=== PATIENT | male | born 1935 | race Hispanic/Latino ===

== ENCOUNTER 2018-03-15 10:11 | Observation (INO) | payer MEDICARE ==
[~2018-03-15] VITALS: Ht 167.6 cm; Wt 63.5 kg
--- OUTSIDE RECORDS SUMMARY | 2018-03-15 10:13 | XMS REPORT ---
Author Author [facility] Address Unknown Phone Unavailable Care Team Providers Care Laundry Presser Name Role Phone Unavailable Unavailable Payers Payer Name Policy Type Policy Number Effective Date Expiration Date Problems This patient has no known problems. Allergies, Adverse Reactions, Alerts Allergy Name Allergy Type Status Severity Reaction(s) Onset Date Inactive Date Treating Clinician Comments No Known Allergies DA Active U 2018-01-10 00:00:00 Medications This patient has no known medications.
[2018-03-15] MEDS ORDERED: ULTRAM 50MG50 MG PO (10:28)
[2018-03-15] MEDS ORDERED: METOPROLOL SUCC50 MG PO (10:28)
[2018-03-15] MEDS ORDERED: TAMSULOSIN HCL0.4 MG PO (10:28)
[2018-03-15] MEDS ORDERED: CARBIDOPA-LEVO1 EAC4 PO (10:28)
[2018-03-15] MEDS ORDERED: LISINOPRIL20 MG PO (10:28)
[2018-03-15] MEDS ORDERED: FINASTERIDE5 MG PO (10:28)
[2018-03-15] MEDS ORDERED: FUROSEMIDE20 MG PO (10:28)
[2018-03-15] MEDS ORDERED: ROPINIROLE HCL1 MG PO (10:28)
--- NOTE | 2018-03-15 10:49 | Diagnostic Imaging Report ---
Examination: CT head without contrast Clinical Indication: Fall. Head injury. Technique: Transaxial noncontrast images from the skull base through the vertex were obtained. Sagittal and coronal reformatted images were done. Dose modulation, iterative reconstruction, and/or weight based adjustment of the mA/kV was utilized to reduce the radiation dose to as low as reasonably achievable. Comparison: None.. Findings: Scalp: No abnormalities. Bones: Intact. No fractures. No blastic or lytic lesions. Brain sulci: Appropriate for patient's age. Ventricles: Normal in size and configuration. No hydrocephalus. . Extra-axial space: No abnormalities. Parenchyma: There are confluent areas of low-attenuation within subcortical and periventricular white matter, nonspecific, but could represent microvascular ischemic disease. Chronic ovarian perfusion demonstrated in the bilateral foramina and subinsular cortices. No masses, hemorrhage, or acute or chronic cortical based vascular insults. Suprasellar region: No abnormalities. Craniocervical junction: The foramen magnum is patent. No Chiari one malformation. Incidental findings: Atherosclerotic calcification of the cavernous and supraclinoid internal carotid and V4 segments of the bilateral vertebral arteries. Retention cyst in the posterior aspect of the partially visualized right maxillary sinus Impression: 1. No acute intracranial finding. 2. Moderate chronic microvascular ischemic change. Mild volume loss. 3. Chronic lacunar infarcts, as above Signed by: Dr. Hyun Guardado M.D. on 03/15/2018 10:45 AM
--- NOTE | 2018-03-15 11:51 | Diagnostic Imaging Report ---
Exam: Left Hand Series. History: Redness and swelling Comparison: <None.> Findings: Soft tissue edema is noted within the first through fourth digits and thenar eminence. No radiographic evidence of bony destructive changes. Diffuse mild osteopenia. No evidence of fracture or malalignment. Moderate degenerative changes are present at the first carpometacarpal joint and index finger metacarpophalangeal joint and mild degenerative changes are present at the interphalangeal and intercarpal. Subchondral cystic change versus small erosions are noted in the lunate and capitate. Atherosclerotic calcifications are noted. Impression: Soft tissue swelling of the hand without radiographic evidence of osteomyelitis. 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 Diffuse mild osteopenia. Subchondral cystic changes versus erosions at the lunate and capitate. Signed by: Dr. Renzo Lee MD on 03/15/2018 11:48 AM
--- NOTE | 2018-03-15 11:57 | Diagnostic Imaging Report ---
Right elbow radiographs - 3 views. HISTORY: Redness and swelling. COMPARISON: None FINDINGS: Exam limited due to lack of true lateral view. Cannot assess for the presence of joint effusion. No definite fracture or malalignment. No evidence of bony destructive change or soft tissue abnormality. Joint spaces are preserved. Atherosclerotic vascular calcifications are noted. IMPRESSION: Exam limited due to lack of true lateral view. Cannot assess for the presence of joint effusion. No definite fracture or malalignment. If occult fracture is suspected, a repeat lateral radiograph may be obtained. Signed by: Dr. Renzo Lee MD on 03/15/2018 11:54 AM
--- NOTE | 2018-03-15 12:11 | Diagnostic Imaging Report ---
EXAMINATION: RIBS UNILAT W/CXR COMPARISON: None FINDINGS: TUBES and LINES: Left sided AICD device with leads overlying the right atrium and right ventricle. LUNGS: Moderate inflation of the lungs. Mild patchy left basilar opacity, likely atelectasis. There is no evidence of pneumonia or pulmonary edema. There is a 5 mm nodular density which projects over the right lower lung. PLEURA: No pleural effusion or pneumothorax. HEART AND MEDIASTINUM: The cardiomediastinal silhouette is unremarkable. Extensive atherosclerotic calcifications of the aortic arch. BONES AND SOFT TISSUES: Diffuse osteopenia. There are minimally displaced fracture of the right posterolateral ninth and tenth ribs. Deformity of the right posterior tenth rib may reflect sequela of prior trauma. Vertebral augmentation is noted in an upper lumbar vertebral body. Mild loss of vertebral body height at T11 and T12. UPPER ABDOMEN: No free air under the diaphragm. IMPRESSION: Minimally displaced fracture of the right posterolateral ninth and tenth ribs. No evidence of pneumothorax. Possible 5 mm pulmonary nodule in the right lower lung. If there is a risk for malignancy such as smoking, a chest CT may be considered for further evaluation. Mild age indeterminate loss of vertebral body height at T11 and T12. Signed by: Dr. Renzo Lee MD on 03/15/2018 12:07 PM
[2018-03-15 12:19] LABS: BASOPHILS % 0.7 % (0.0-1.0); EOSINOPHILS # (AUTO) 0.1 (0.0-0.4); EOSINOPHILS % 1.5 % (0.0-6.0); HEMATOCRIT 28.7 % (38.2-49.6); HEMOGLOBIN 9.3 g/dL (14.0-18.0); LYMPHOCYTES # (AUTO) 0.9 (1.0-3.2); LYMPHOCYTES % 15.2 % (18.0-39.1); MEAN CORPUSCULAR HEMOGLOBIN 29.1 pg (28-32); MEAN CORPUSCULAR HGB CONC 32.4 g/dL (31-35); MEAN CORPUSCULAR VOLUME 89.7 fL (81-99); MONOCYTES # (AUTO) 0.6 (0.2-0.8); MONOCYTES % 10.7 % (4.4-11.3); NEUTROPHILS # (AUTO) 4.3 (2.1-6.9); NEUTROPHILS % 71.6 % (38.7-80.0); PLATELET COUNT 177 x10e3/uL (140-360); RED CELL DISTRIBUTION WIDTH 14.2 % (11.7-14.4)
[2018-03-15 12:23] LABS: INR 1.19; PROTHROMBIN TIME 16.1 seconds (11.9-14.5)
[2018-03-15 12:24] LABS: PARTIAL THROMBOPLASTIN TIME 44.5 seconds (23.8-35.5)
[2018-03-15 12:30] LABS: BILIRUBIN,URINE NEGATIVE (NEGATIVE); CLARITY,URINE HAZY (CLEAR); COLOR,URINE YELLOW (YELLOW); KETONES,URINE TRACE (NEGATIVE); LEUKOCYTE ESTERASE ,URINE TRACE (NEGATIVE); NITRITE,URINE NEGATIVE (NEGATIVE); PROTEIN,URINE DIPSTICK NEGATIVE (NEGATIVE); URINE UROBILINOGEN 0.2 mg/dL (0.2 - 1)
[2018-03-15 12:31] LABS: ALBUMIN 2.5 g/dL (3.5-5.0); ALBUMIN/GLOBULIN RATIO 0.6 (0.8-2.0); ALKALINE PHOSPHATASE 78 IU/L (40-150); ANION GAP 11.5 mmol/L (8-16); BLOOD UREA NITROGEN 19 mg/dL (7-26); BUN/CREATININE RATIO 18 (6-25); CARBON DIOXIDE 25 mmol/L (22-29); CHLORIDE 100 mmol/L (98-107); CREATINE KINASE 55 IU/L (30-200); CREATININE, SERUM 1.08 mg/dL (0.72-1.25); EST GLOMERULAR FILTRATION RATE > 60 ML/MIN (60-); GLUCOSE 125 mg/dL (74-118); POTASSIUM 3.5 mmol/L (3.5-5.1); SODIUM 133 mmol/L (136-145)
--- NOTE | 2018-03-15 12:35 | Diagnostic Imaging Report ---
EXAMINATION: THORACIC SP 3V COMPARISON: None FINDINGS: Diffuse osteopenia. Minimal loss of vertebral body height at T12 and L!. There has been vertebral augmentation at L2. No evidence of malalignment. Aortic atherosclerotic vascular calcifications are present. IMPRESSION: Minimal age indeterminate loss of vertebral body height at T12 and L1. No evidence of displaced fracture. Prior vertebral augmentation at L2. Signed by: Dr. Renzo Lee MD on 03/15/2018 12:31 PM
[2018-03-15 12:36] LABS: BACTERIA,URINE FEW /HPF; EPITHELIAL CELLS,URINE FEW /LPF; YEAST,URINE FEW
[2018-03-15 12:37] LABS: ALANINE AMINOTRANSFERASE < 6 IU/L (0-55)
[2018-03-15] MEDS ORDERED: MORPHINE SULFATE 2 MG/ML SYR IV PRN (13:30)
[2018-03-15] MEDS ORDERED: ONDANSETRON HCL INJ 2 MG/ML VIAL IV PRN (13:30)
[2018-03-15] MEDS: SODIUM CHLORIDE 0.9% 1000ML 1,000 ML IV SCH ×2 (15:01→23:45)
[2018-03-15 19:15] VITALS: BP 178/82
[2018-03-15 19:42] LABS: CREATINE KINASE MB 1.2 ng/mL (0-5.0)
[2018-03-15 20:00] VITALS: BP 178/82
[2018-03-16 00:25] VITALS: BP 174/76
[2018-03-16 05:00] VITALS: BP 166/74
[2018-03-16 05:16] LABS: BASOPHILS % 0.5 % (0.0-1.0); EOSINOPHILS # (AUTO) 0.1 (0.0-0.4); EOSINOPHILS % 1.1 % (0.0-6.0); HEMATOCRIT 28.2 % (38.2-49.6); HEMOGLOBIN 9.2 g/dL (14.0-18.0); LYMPHOCYTES # (AUTO) 1.4 (1.0-3.2); LYMPHOCYTES % 23.6 % (18.0-39.1); MEAN CORPUSCULAR HEMOGLOBIN 29.1 pg (28-32); MEAN CORPUSCULAR HGB CONC 32.6 g/dL (31-35); MEAN CORPUSCULAR VOLUME 89.2 fL (81-99); MONOCYTES # (AUTO) 0.7 (0.2-0.8); MONOCYTES % 11.7 % (4.4-11.3); NEUTROPHILS # (AUTO) 3.6 (2.1-6.9); NEUTROPHILS % 62.7 % (38.7-80.0); PLATELET COUNT 181 x10e3/uL (140-360); RED BLOOD COUNT 3.16 x10e6/uL (4.3-5.7); RED CELL DISTRIBUTION WIDTH 14.3 % (11.7-14.4)
[2018-03-16 05:34] LABS: ANION GAP 14.7 mmol/L (8-16); BLOOD UREA NITROGEN 14 mg/dL (7-26); BUN/CREATININE RATIO 16 (6-25); CALCIUM 8.8 mg/dL (8.4-10.2); CARBON DIOXIDE 22 mmol/L (22-29); CHLORIDE 103 mmol/L (98-107); EST GLOMERULAR FILTRATION RATE > 60 ML/MIN (60-); GLUCOSE 86 mg/dL (74-118); POTASSIUM 3.7 mmol/L (3.5-5.1); SODIUM 136 mmol/L (136-145)
[2018-03-16 05:55] LABS: CREATINE KINASE 65 IU/L (30-200)
[2018-03-16 06:26] LABS: CREATINE KINASE MB < 1.00 ng/mL (0-4.3)
[2018-03-16 07:26] VITALS: BP 170/79
[2018-03-16 09:12] VITALS: BP 170/79
[2018-03-16 11:20] VITALS: BP 143/70
[2018-03-16] MEDS ORDERED: TRAMADOL HCL 50 MG TAB PO PRN (12:00)
--- NOTE | 2018-03-16 14:42 | History and Physical ---
PCP: Dr. Maebl Waller. CHIEF COMPLAINT: Recurrent fall secondary to advanced Parkinson's disease. HISTORY: An 83-year-old male with advanced Parkinson's disease. The patient has exhausted all his physical therapy . Patient needs skilled nursing care. He has recurrent fall at home. PAST MEDICAL HISTORY: Advanced Parkinson's disease, hypertension, enlarged prostate, osteoarthritis, and recurrent fall. SOCIAL HISTORY: Patient lives at home with his family. ALLERGIES: NO KNOWN ALLERGIES. HOME MEDICATIONS: List reviewed. REVIEW OF SYSTEMS: Recurrent fall and Parkinson's disease, advanced. PHYSICAL EXAMINATION VITAL SIGNS: Temperature is 98, blood pressure 143/70, pulse rate 80, respirations 18. GENERAL: The patient is not in acute distress. He is awake. HEENT: Normocephalic, atraumatic and anicteric. NECK: Supple grossly. PULMONARY: Clear. CARDIOVASCULAR: Regular rhythm. ABDOMEN: Soft. EXTREMITIES: No cyanosis or edema. NEUROLOGIC: Advanced Parkinson's disease with tremor. LABORATORY DATA: Unremarkable other than chronic anemia. IMPRESSION 1. Advanced Parkinson's disease. 2. Recurrent fall. 3. Right 9th and 10th rib fractures. PLAN: detention placement versus going home. Patient needs skilled nursing care. He may need mcc placement for monitoring and management of fall. Patient will have recurrent fall. Advised possible hospice care if going home and hospice care can help with patient's advanced Parkinson's disease and recurrent fall and skilled nursing care with assistance. Job#: [id number]
[2018-03-16 15:51] VITALS: BP 131/80
[2018-03-16] MEDS ORDERED: CARBIDOPA/LEVODOPA 25/100 CR TAB PO SCH (17:00)
[2018-03-16] MEDS ORDERED: ROPINIROLE HCL 1 MG TAB PO SCH (17:00)
[2018-03-17] MEDS ORDERED: TAMSULOSIN HCL 0.4 MG CAP PO SCH (09:00)
[2018-03-17] MEDS ORDERED: LISINOPRIL 20 MG TAB PO SCH (09:00)
[2018-03-17] MEDS ORDERED: METOPROLOL SUCCINATE 50 MG TAB XL PO SCH (09:00)
[2018-03-17] MEDS ORDERED: FINASTERIDE 5 MG TAB PO SCH (09:00)
== END 2018-03-16 18:40 | disposition home or self-care (01) ==
LOC: ER 10:11 → ERHOLD 14:08 → IMCU 18:40
PROVIDERS: ADMIT Internal Medicine; ATTEND Internal Medicine
DX: S22.41XA Multiple fractures of ribs, right side, initial encounter for closed fracture (principal); W01.190A Fall on same level from slipping, tripping and stumbling with subsequent striking against furniture, initial encounter; Y93.89 Activity, other specified; Y92.013 Bedroom of single-family (private) house as the place of occurrence of the external cause; L03.114 Cellulitis of left upper limb; I10 Essential (primary) hypertension; G20 Parkinson's disease; F02.80 Dementia in other diseases classified elsewhere, unspecified severity, without behavioral disturbance, psychotic disturbance, mood disturbance, and anxiety; N40.0 Benign prostatic hyperplasia without lower urinary tract symptoms; Z83.3 Family history of diabetes mellitus; Z82.49 Family history of ischemic heart disease and other diseases of the circulatory system; Z91.81 History of falling; D64.9 Anemia, unspecified
CPT/HCPCS: 36415 ×2; 70450; 71101; 72072; 73080; 73130; 80048; 80053; 81001; 82550 ×2; 82553 ×2; 82948; 84484 ×2; 85025 ×2; 85610; 85730; 93005; 97139 ×2; 99284; G0378 ×2; J2270; J2405; J7030